=== PATIENT | male | born 1950 | race Caucasian/White ===

== ENCOUNTER 2021-06-07 11:51 | Inpatient (IN) | payer MEDICARE, OTHER ==
[~2021-06-07] VITALS: Ht 180.3 cm; Wt 71.7 kg
[2021-06-07] MEDS ORDERED: ELIQUIS5 MG PO (17:34)
[2021-06-07] MEDS ORDERED: BETAPACE 80MG T80 MG PO (17:34)
[2021-06-07] MEDS ORDERED: BREO ELLIPTA 11 EACH INH (17:35)
[2021-06-07] MEDS ORDERED: ATORVASTATIN CA40 MG PO (17:36)
[2021-06-07] MEDS ORDERED: VOLTAREN EC 7575 MG PO (17:36)
[2021-06-07] MEDS ORDERED: BACLOFEN10 MG PO (17:36)
[2021-06-07] MEDS ORDERED: PLAQUENIL 200200 MG PO (17:37)
[2021-06-07] MEDS ORDERED: TIZANIDINE HCL4 MG PO (17:37)
[2021-06-07] MEDS ORDERED: GABAPENTIN400 MG PO (17:37)
[2021-06-07] MEDS ORDERED: ASPIRIN CHEWABL81 MG PO (17:38)
[2021-06-07] MEDS ORDERED: PROVENTIL HFA6.7 GM INH (17:38)
[2021-06-07] MEDS ORDERED: ACETAMINOPHEN-1 EAC1 PO (17:40)
--- NOTE | 2021-06-07 21:17 | NUR ---
CALLED DR CHAUDHARY AT THIS TIME REGARDING PATIENT CARDIAC SCREEN RESULTS. NO NEW ORDERS NOTED, DR CHAUDHARY VOICES TO CONTINUE LOVENOX SQ. WILL SEE PATIENT IN AM.
[2021-06-08 03:24] LABS: HEMOGLOBIN 11.6 gm/dl (14.0-17.5); RED BLOOD COUNT 3.74 M/UL (4.20-5.50)
[2021-06-08 03:55] LABS: BUN/CREATININE RATIO 29 (0-10)
[2021-06-09 04:28] LABS: HEMOGLOBIN 11.1 gm/dl (14.0-17.5); RED BLOOD COUNT 3.57 M/UL (4.20-5.50); WHITE BLOOD COUNT 4.6 K/UL (4.5-11.0)
[2021-06-09 05:16] LABS: BUN/CREATININE RATIO 33 (0-10)
[2021-06-10 04:51] LABS: HEMOGLOBIN 11.8 gm/dl (14.0-17.5); RED BLOOD COUNT 3.75 M/UL (4.20-5.50)
[2021-06-10 04:53] LABS: WHITE BLOOD COUNT 5.8 K/UL (4.5-11.0)
[2021-06-10 05:23] LABS: BUN/CREATININE RATIO 34 (0-10)
[2021-06-10] MEDS ORDERED: DECADRON6 MG PO (10:29)
--- NOTE | 2021-06-10 11:15 | NUR ---
PATIENT O2 SATURATION IS 88% WITH NO SUPPLEMENTAL O2
== END 2021-06-10 14:20 | disposition home or self-care (01) | DRG 177 ==
LOC: PROG CARE 11:51
PROVIDERS: ADMIT Internal Medicine Infectious Disease
PROC: 8E0ZXY6 Isolation (ICD-10-PCS; principal; 2021-06-07)
PROC: XW033E5 Introduction of Remdesivir Anti-infective into Peripheral Vein, Percutaneous Approach, New Technology Group 5 (ICD-10-PCS; 2021-06-07)
PROC: 3E0333Z Introduction of Anti-inflammatory into Peripheral Vein, Percutaneous Approach (ICD-10-PCS; 2021-06-08)
PROC: B24BZZZ Ultrasonography of Heart with Aorta (ICD-10-PCS; 2021-06-09)
DX: U07.1 COVID-19 (principal); J12.82 Pneumonia due to coronavirus disease 2019; I21.A1 Myocardial infarction type 2; J96.01 Acute respiratory failure with hypoxia; J44.0 Chronic obstructive pulmonary disease with (acute) lower respiratory infection; I10 Essential (primary) hypertension; E78.5 Hyperlipidemia, unspecified; D69.6 Thrombocytopenia, unspecified; D72.819 Decreased white blood cell count, unspecified; F17.210 Nicotine dependence, cigarettes, uncomplicated; E83.42 Hypomagnesemia; M32.9 Systemic lupus erythematosus, unspecified; I48.0 Paroxysmal atrial fibrillation; Z79.01 Long term (current) use of anticoagulants; Z79.82 Long term (current) use of aspirin; Z88.0 Allergy status to penicillin; Z82.49 Family history of ischemic heart disease and other diseases of the circulatory system; Z98.1 Arthrodesis status
CPT/HCPCS: ECHO; 36415; 71045; 80048; 80053; 82550; 82553; 82728; 83615; 83735; 83880; 84443; 84484; 85025; 86140; 93005; 93306; 94640; 94664; 94760; 97161; J1100; J1650; J2550; J3475; J7030